=== PATIENT | female | born 1980 | race Hispanic/Latino ===

== ENCOUNTER 2018-04-28 20:18 | Emergency (ER) | payer OTHER ==
[2018-04-28 20:34] VITALS: RESP 16; O2SAT 98
--- NOTE | 2018-04-28 21:28 | ED PDOC ---
HPI: Abdomen Time Seen by Provider: 04/28/18 20:46 Chief Complaint (Nursing): Abdominal Pain History Per: Patient History/Exam Limitations: no limitations Onset/Duration Of Symptoms: Days Outside of [place] travel?: No Current Symptoms Are (Timing): Still Present Location Of Pain/Discomfort: RLQ Additional Complaint(s): 37 year old F with no PMHx presenting with right lower abdominal pain x 4 days. States the pain has been in the same area and started after a vigorous cardiovascular exercise and was difficult to walk. States she has mild nausea but no vomiting. Denies fevers, chills, abnormal stools, urinary symptoms. States she has had an ovarian cyst with rupture about 8 years ago. No vaginal bleeding or vaginal discharge. Finished her LMP one week ago. Past Medical History Reviewed: Historical Data, Nursing Documentation, Vital Signs Vital Signs: Last Vital Signs Temp 98.8 F 04/28/18 20:33 Pulse 89 04/28/18 20:33 Resp 16 04/28/18 20:33 BP 123/77 04/28/18 20:33 Pulse Ox 98 04/28/18 20:33 - Medical History PMH: Anxiety (takes lexapro) - Family History Family History: States: Unknown Family Hx - Allergies Allergies/Adverse Reactions: Allergies Allergy/AdvReac Type Severity Reaction Status Date / Time Sulfa (Sulfonamide Allergy RASH Verified 04/28/18 20:32 Antibiotics) Review of Systems ROS Statement: Except As Marked, All Systems Reviewed And Found Negative Physical Exam - Reviewed Nursing Documentation Reviewed: Yes Vital Signs Reviewed: Yes - Physical Exam Appears: Positive for: Well, Non-toxic, No Acute Distress Head Exam: Positive for: ATRAUMATIC, NORMAL INSPECTION, NORMOCEPHALIC Skin: Positive for: Normal Color, Warm, DRY Eye Exam: Positive for: EOMI, Normal appearance, PERRL ENT: Positive for: Normal ENT Inspection Neck: Positive for: Normal, Painless ROM Cardiovascular/Chest: Positive for: Regular Rate, Rhythm Respiratory: Positive for: CNT, Normal Breath Sounds Gastrointestinal/Abdominal: Positive for: Normal Exam, Soft, Tenderness (RLQ tenderness, mild, non-Mcburney's) Back: Positive for: Normal Inspection Extremity: Positive for: Normal ROM Neurologic/Psych: Positive for: Alert, Oriented - Laboratory Results Result Diagrams: 04/28/18 21:39 04/28/18 21:39 - ECG O2 Sat by Pulse Oximetry: 98 Pulse Ox Interpretation: Normal Medical Decision Making Medical Decision MakinPM A/P: 37 year old F presenting with RLQ pain --Very unlikely appendicitis given chronicity of pain and well appearance --More likely ovarian cyst with rupture, possible mesenteric adenitis --Will get sono and labs and re-eval after for possible need for CT 11PM EXAM: US Pelvis, Complete Transvaginal and Transabdominal COMPARISON: None provided. CLINICAL HISTORY: Rlq pain. h/o ov cyst TECHNIQUE: Transvaginal and transabdominal pelvic ultrasound (complete) with image documentation. FINDINGS: ENDOMETRIUM: Normal thickness measuring 8.4 mm in AP dimension. UTERUS/CERVIX: The uterus is anteverted in position and normal in size measuring approximately 6.5 x 3.1 x 3.9 cm in longitudinal, AP and transverse dimensions respectively. No uterine fibroid or other mass evident. RIGHT OVARY: Normal Doppler flow. No abnormal mass. A few follicular cysts are scattered within the right ovary; the largest of which measures 1.2 x 0.8 x 1.1 cm. LEFT OVARY: Normal Doppler flow. No abnormal mass. Several tiny follicles are seen scattered within the left ovary. FREE FLUID: No free fluid. IMPRESSION: 1. Unremarkable pelvic ultrasound. 2. A few bilateral ovarian follicular cysts are identified. Electronically signed on Apr 28, 2018 10:34:26 PM EST by: Celestino De Luna M.D., AGUSTO Certified By [facility] [employer] [facility] [employer] Trained MRI and CT Specialist Patient states that she's feeling well, appears very well Instructed of results Discussed need for CT at this time for appendicitis, however given extreme comfortable appearance, relatively benign exam, no white count, and after 4 days of symptoms, the chance of appendicitis is exceedingly low, however, discussed with patient that if her symptoms worsen or any concerning symptoms develop, she should return immediately to the ER. Very well appearing upon discharge. Dr. Chavez paged to give results. Disposition - Clinical Impression Clinical Impression: Abdominal pain, Ovarian cyst - Patient ED Disposition Is Patient to be Admitted: No - Disposition Referrals: Jona Chavez MD [Staff Provider] - Disposition: Routine/Home Disposition Time: 23:04 Condition: GOOD Additional Instructions: As discussed, please pay attention to your symptoms and if the pain worsens in the right lower quadrant of your abdomen, or if you develop any fevers, nausea, vomiting, or any other concerning symptoms, PLEASE return to the emergency room. Instructions: Ovarian Cysts, Acute Abdomen (Belly Pain), Adult (DC) Forms: REEL Qualified (Amharic)
[2018-04-28 21:49] LABS: BASO # 0.1 K/uL (0.0-0.2); BASO % 0.7 % (0.0-2.0); EOS # 0.2 K/uL (0.0-0.7); HEMOGLOBIN 12.9 g/dL (12.0-16.0); LYMPH # 3.6 K/uL (1.0-4.3); LYMPH % 38.8 % (20.0-40.0); MEAN CELL VOLUME 92.4 fl (81.0-99.0); MEAN CORPUSCULAR HEMOGLOBIN 30.8 pg (27.0-31.0); MEAN CORPUSCULAR HGB CONC 33.4 g/dL (33.0-37.0); MEAN PLATELET VOLUME 9.6 fl (7.2-11.7); MONO # 0.6 K/uL (0.0-0.8); MONO % 6.9 % (0.0-10.0); NEUT # 4.7 K/uL (1.8-7.0); NEUT % 51.6 % (50.0-75.0); NRBC % 0.1 % (0.0-0.0); RBC 4.17 Mil/uL (3.80-5.20); RED CELL DISTRIBUTION WIDTH 12.8 % (11.5-14.5); WHITE BLOOD COUNT 9.2 K/uL (4.8-10.8)
[2018-04-28 21:51] LABS: SQUAMOUS EPITHIAL 2 /hpf (0-5); URINE BACTERIA RARE (<OCC); URINE BILIRUBIN NEGATIVE (NEGATIVE); URINE BLOOD NEGATIVE (NEGATIVE); URINE CLARITY SLIGHTY-CLOUDY (Clear); URINE COLOR YELLOW (YELLOW); URINE GLUCOSE (UA) NEG (NEGATIVE); URINE LEUKOCYTE ESTERASE NEG Leu/uL (Negative); URINE PROTEIN NEGATIVE (NEGATIVE); URINE UROBILINOGEN 0.2-1.0 mg/dL (0.2-1.0)
[2018-04-28 21:58] LABS: ALB/GLOB RATIO 1.5 (1.0-2.1); ALBUMIN 4.3 g/dL (3.5-5.0); ALT/SGPT 23 U/L (9-52); AST/SGOT 29 U/L (14-36); BLOOD UREA NITROGEN 9 mg/dl (7-17); CALCIUM 9.7 mg/dL (8.4-10.2); GFR NON-AFRICAN AMERICAN > 60
[2018-04-28 23:28] VITALS: BP 100/59; PULSE 69; TEMP 98.3
--- NOTE | 2018-04-29 10:22 | US ---
Date of service: 04/28/2018 HISTORY: rlq pain, hx of ovarian cyst. LMP 04/17/2018 COMPARISON: None available. TECHNIQUE: Transvaginal technique utilized as the bladder was under distended to allow for transabdominal imaging. FINDINGS: UTERUS: Measures 6.5 x 3.1 x 3.9 cm. Normal in size and appearance. ENDOMETRIUM: Measures 8 mm in diameter. Unremarkable. CERVIX: No cervical abnormality identified. RIGHT OVARY: Measures 4.2 x 1.5 x 3.0 cm. No solid mass. Normal flow. Normal appearing flow follicles are noted. The dominant follicle is on the right side measuring 1.2 x 0.8 x 1.1 cm LEFT OVARY: Measures 3.0 x 1.2 x 2.7 cm. No solid mass. Normal flow. With normal follicles. FREE FLUID: No significant free fluid noted. OTHER FINDINGS: None. IMPRESSION: Unremarkable pelvic ultrasound.. He each ovary has normal appearing follicles. The dominant follicles on the right side. Concordant results (preliminary interpretation) provided by [facility].
== END 2018-04-28 23:27 | disposition home or self-care (01) ==
LOC: H.ER 20:18
DX: R10.9 Unspecified abdominal pain (principal); N83.201 Unspecified ovarian cyst, right side; Z88.2 Allergy status to sulfonamides
CPT/HCPCS: 76830; 80053; 81003; 81025; 85025; 96374; 99283; J1885